=== PATIENT | male | born 1940 | race Caucasian/White ===

== ENCOUNTER 2018-08-31 12:09 | Outpatient (REF) | payer MEDICARE, BC, SELFPAY ==
[2018-08-31 22:45] LABS: ALT 35 U/L (12-78); AST 24 U/L (15-37); Albumin 3.5 g/dL (3.4-5.0); Alkaline Phosphatase 106 U/L (46-116); Anion Gap 9.4 mmol/L (3-11); BUN 19 mg/dL (7-18); Bilirubin, Total 0.3 mg/dL (0.2-1.0); CO2 25.6 mmol/L (21.0-32.0); CREATININE 0.97 mg/dL (0.70-1.30); Calcium 9.3 mg/dL (8.5-10.1); Chloride 103 mmol/L (98-107); Glucose 103 mg/dL (70-100); Potassium 4.5 mmol/L (3.5-5.1); Sodium 138 mmol/L (136-145); Total Protein 7.6 g/dL (6.4-8.2)
[2018-08-31 22:52] LABS: Abs Immature Grans 0.02 k/cumm (0.0-0.09); Absolute Basophil Count 0.02 k/cumm (0.0-0.2); Absolute Eosinophil Count 0.12 k/cumm (0.0-0.7); Absolute Lymphocyte Count 1.64 k/cumm (1.2-3.4); Absolute Monocyte Count 0.59 k/cumm (0.11-0.7); Basophils % 0.3; Eosinophils % 1.7; HCT 41.7 % (40.0-50.0); HGB 13.3 g/dL (13.5-17.5); Immature Grans % 0.3; Lymphocytes % 23.5; Mean Corp. HGB Concentration 31.9 g/dL (32.0-36.0); Mean Corpuscular Hemoglobin 32.3 pg (27.0-33.0); Mean Corpuscular Volume 101.2 fL (80-95); Mean Platelet Volume 9.5 fL (8.0-11.0); Monocytes % 8.4; Neutrophils % 65.8; Platelet Count 298 x1000/uL (130-400); RBC 4.12 m/cumm (4.50-6.00); RBC Distribution Width 16.7 % (11.8-14.1); White Blood Cell Count 6.99 k/cumm (4.4-10.8)
== END 2018-08-31 12:29 ==
LOC: NCHCN 12:09
PROVIDERS: PCP Family Medicine; Visit Provider Family Medicine
DX: R31.0 Gross hematuria (principal)
CPT/HCPCS: 80053; 85025; 87086

== ENCOUNTER 2018-10-25 10:38 | Outpatient (REF) | payer MEDICARE, BC, SELFPAY ==
[2018-10-25 22:18] LABS: Vitamin B12 256 pg/mL (193-986)
== END 2018-10-25 10:58 ==
LOC: NCHCN 10:38
PROVIDERS: PCP Family Medicine; Visit Provider Family Medicine
DX: D53.9 Nutritional anemia, unspecified (principal)
CPT/HCPCS: 82607

== ENCOUNTER 2019-06-01 15:08 | Outpatient (REF) | payer MEDICARE, BC, SELFPAY ==
[2019-06-01 20:15] LABS: Abs Immature Grans 0.02 k/cumm (0.0-0.09); Absolute Basophil Count 0.01 k/cumm (0.0-0.2); Absolute Lymphocyte Count 1.23 k/cumm (1.2-3.4); Absolute Monocyte Count 1.47 k/cumm (0.11-0.7); Basophils % 0.1; Eosinophils % 0.9; HCT 40.8 % (40.0-50.0); HGB 13.9 g/dL (13.5-17.5); Immature Grans % 0.2 %; Lymphocytes % 11.2; Mean Corp. HGB Concentration 34.1 g/dL (32.0-36.0); Mean Corpuscular Hemoglobin 34.4 pg (27.0-33.0); Mean Platelet Volume 9.4 fL (8.0-11.0); Monocytes % 13.4; Neutrophils % 74.2; Platelet Count 277 x1000/uL (130-400); RBC 4.04 m/cumm (4.50-6.00); RBC Distribution Width 15.6 % (11.8-14.1)
[2019-06-01 20:18] LABS: Absolute Neutrophil Count 8.16 k/cumm (1.2-6.7)
[2019-06-01 20:55] LABS: Hemoglobin A1C 5.8 % (3.8-5.6); Vitamin B12 839 pg/mL (193-986)
[2019-06-01 22:28] LABS: Folate > 20.0 ng/mL (8.6-20.0)
== END 2019-06-01 15:28 ==
LOC: NCHCN 15:08
PROVIDERS: PCP Family Medicine; Visit Provider Internal Medicine
DX: D53.9 Nutritional anemia, unspecified (principal); R42 Dizziness and giddiness; R73.09 Other abnormal glucose; C44.91 Basal cell carcinoma of skin, unspecified
CPT/HCPCS: 82607; 82746; 83036; 85025

== ENCOUNTER 2019-06-09 21:58 | Outpatient (REF) | payer MEDICARE, BC, SELFPAY ==
[2019-06-09 21:23] LABS: Abs Immature Grans 0.07 k/cumm (0.0-0.09); Absolute Basophil Count 0.02 k/cumm (0.0-0.2); Absolute Eosinophil Count 0.31 k/cumm (0.0-0.7); Absolute Lymphocyte Count 1.27 k/cumm (1.2-3.4); Absolute Monocyte Count 1.79 k/cumm (0.11-0.7); Absolute Neutrophil Count 6.51 k/cumm (1.2-6.7); Basophils % 0.2; Eosinophils % 3.1; HCT 42.4 % (40.0-50.0); HGB 13.8 g/dL (13.5-17.5); Immature Grans % 0.7 %; Lymphocytes % 12.7; Mean Corp. HGB Concentration 32.5 g/dL (32.0-36.0); Mean Corpuscular Hemoglobin 33.2 pg (27.0-33.0); Mean Corpuscular Volume 101.9 fL (80-95); Mean Platelet Volume 9.2 fL (8.0-11.0); Neutrophils % 65.3; Platelet Count 331 x1000/uL (130-400); RBC 4.16 m/cumm (4.50-6.00); RBC Distribution Width 15.3 % (11.8-14.1); White Blood Cell Count 9.97 k/cumm (4.4-10.8)
[2019-06-09 21:44] LABS: Diff Comment Agrees w/ Instrument; Macrocytosis 1+
[2019-06-09 21:54] LABS: COMMENT (LAB VIEW ONLY) 97.13 mg/dL; Microalb ug/mg Crea 16.1 ug/mg Cr
[2019-06-10 17:26] LABS: Bilirubin Negative (Negative); Blood Negative (Negative); Clarity Clear (Clear); Glucose Negative (Negative); Ketones Negative (Negative); Leukocyte Esterase Negative (Negative); Nitrite Negative (Negative); pH 5.5 (5-8)
== END 2019-06-09 22:18 ==
LOC: NCHCN 21:58
PROVIDERS: PCP Family Medicine; Visit Provider Nurse Practitioner Family
DX: R50.9 Fever, unspecified (principal); I10 Essential (primary) hypertension; J44.1 Chronic obstructive pulmonary disease with (acute) exacerbation
CPT/HCPCS: 81003; 82043; 82570; 85025

== ENCOUNTER 2020-04-15 16:15 | Outpatient (REF) | payer MEDICARE, BC, SELFPAY ==
[2020-04-15 13:23] LABS: BUN 15 mg/dL (7-18); CREATININE 1.1 mg/dL (0.70-1.30); Calcium 8.8 mg/dL (8.5-10.1); Chloride 103 mmol/L (98-107); Glucose 92 mg/dL (74-106); Potassium 4.8 mmol/L (3.5-5.1); Sodium 140 mmol/L (136-145)
== END 2020-04-15 16:16 | disposition home or self-care (01) ==
LOC: NCHCN 16:15
PROVIDERS: PCP Family Medicine; Visit Provider Nurse Practitioner Family
DX: R03.0 Elevated blood-pressure reading, without diagnosis of hypertension (principal)
CPT/HCPCS: 80048

== ENCOUNTER 2020-09-04 18:35 | Outpatient (REF) | payer MEDICARE, BC, SELFPAY ==
[2020-09-04 21:47] LABS: Abs Immature Grans 0.02 10^3/uL (0.0-0.06); Absolute Basophil Count 0.03 10^3/uL (0.0-0.2); Absolute Eosinophil Count 0.11 10^3/uL (0.0-0.7); Absolute Lymphocyte Count 1.62 10^3/uL (1.2-3.4); Absolute Monocyte Count 0.81 10^3/uL (0.1-0.8); Absolute Neutrophil Count 4.36 10^3/uL (1.2-6.7); Basophils % 0.4; Eosinophils % 1.6; HCT 39.9 % (40.0-50.0); HGB 13.1 g/dL (13.5-17.5); Immature Grans % 0.3; Lymphocytes % 23.3; MCHC 32.8 % (32.0-36.0); MCV 106.7 fL (80-95); MPV 9.6 fL (8.0-11.0); Monocytes % 11.7; Neutrophils % 62.7; Nucleated RBC 0 %; Platelet Count 228 10^3/uL (130-400); RBC 3.74 10^6/uL (4.36-5.78); RDW 15.3 % (11.8-14.1); RDW-SD 60.5 fL; WBC 6.95 10^3/uL (4.4-10.8)
[2020-09-04 21:55] LABS: Anion Gap 8.9 mmol/L (3-11); BUN 20 mg/dL (7-18); CO2 26.1 mmol/L (21.0-32.0); Calcium 8.9 mg/dL (8.5-10.1); Chloride 105 mmol/L (98-107); Glucose 121 mg/dL (74-106); Potassium 4.1 mmol/L (3.5-5.1); Sodium 140 mmol/L (136-145)
[2020-09-04 22:16] LABS: Diff Comment RBC Morph Reviewed; Macrocytosis 3+
== END 2020-09-04 18:36 | disposition home or self-care (01) ==
LOC: NCHCN 18:35
PROVIDERS: PCP Family Medicine; Visit Provider Nurse Practitioner Family
DX: R94.4 Abnormal results of kidney function studies (principal); R79.89 Other specified abnormal findings of blood chemistry; D53.9 Nutritional anemia, unspecified
CPT/HCPCS: 80048; 85025

== ENCOUNTER 2020-09-11 21:10 | Outpatient (REF) | payer MEDICARE, BC, SELFPAY ==
[2020-09-13 12:30] LABS: HSV 1 DNA Result Negative (Negative); HSV 2 DNA Result Negative (Negative); Varicella Zoster DNA Result Negative (Negative)
== END 2020-09-11 21:11 | disposition home or self-care (01) ==
LOC: NCHCN 21:10
PROVIDERS: PCP Family Medicine; Visit Provider Internal Medicine
DX: B02.9 Zoster without complications (principal)
CPT/HCPCS: 87529; 87798

== ENCOUNTER 2021-03-26 02:15 | Outpatient (CLI) | payer MEDICARE, BC, SELFPAY ==
[2021-03-26 13:27] VITALS: BP 143/77; PULSE 62; RESP 20; TEMP 36.2; O2SAT 97
[2021-03-26 14:45] VITALS: BP 135/79; PULSE 54; RESP 20; TEMP 36.9; O2SAT 96
== END 2021-03-26 02:16 | disposition home or self-care (01) ==
LOC: INF 02:15
PROVIDERS: PCP Family Medicine; Visit Provider Family Medicine
DX: U07.1 COVID-19 (principal)
CPT/HCPCS: 96365; Q0047

== ENCOUNTER 2021-10-22 22:15 | Outpatient (REF) | payer MEDICARE, BC, SELFPAY ==
[2021-10-22 21:10] LABS: HCT 41.3 % (40.0-50.0); HGB 13.9 g/dL (13.5-17.5); MCH 35.6 pg (27.0-33.0); MCHC 33.7 % (32.0-36.0); MCV 106 fL (80-95); MPV 9.5 fL (8.0-11.0); Platelet Count 284 10^3/uL (130-400); RDW 13.8 % (11.8-14.1); RDW-SD 53.9 fL; WBC 6.98 10^3/uL (4.4-10.8)
[2021-10-22 21:18] LABS: ALT 31 U/L (16-63); AST 28 U/L (15-37); Albumin 3.4 g/dL (3.4-5.0); Alkaline Phosphatase 100 U/L (46-116); Anion Gap 6.4 mmol/L (3-11); BUN 25 mg/dL (7-18); Bilirubin, Total 0.4 mg/dL (0.2-1.0); CO2 28.6 mmol/L (21.0-32.0); CREATININE 1.3 mg/dL (0.70-1.30); Chloride 100 mmol/L (98-107); Estimated GFR 55.19 (mL/min/1.73m2); Glucose 109 mg/dL (74-106); Potassium 4.4 mmol/L (3.5-5.1); Sodium 135 mmol/L (136-145); Total Protein 7.8 g/dL (6.4-8.2)
== END 2021-10-22 22:16 | disposition home or self-care (01) ==
LOC: NCHCN 22:15
PROVIDERS: PCP Family Medicine; Visit Provider Internal Medicine
DX: I10 Essential (primary) hypertension (principal); N18.9 Chronic kidney disease, unspecified; Z51.81 Encounter for therapeutic drug level monitoring
CPT/HCPCS: 80053; 85027; 85007

== ENCOUNTER 2022-02-27 16:22 | Outpatient (REF) | payer MEDICARE, BC, SELFPAY ==
[2022-02-27 21:14] LABS: Abs Immature Grans 0.06 10^3/uL (0.0-0.06); Absolute Basophil Count 0.03 10^3/uL (0.0-0.2); Absolute Eosinophil Count 0.07 10^3/uL (0.0-0.7); Absolute Lymphocyte Count 1.15 10^3/uL (1.2-3.4); Absolute Monocyte Count 1.47 10^3/uL (0.1-0.8); Basophils % 0.2; Eosinophils % 0.5; HCT 37.6 % (40.0-50.0); HGB 12.4 g/dL (13.5-17.5); Immature Grans % 0.4; Lymphocytes % 8.5; MCH 35.6 pg (27.0-33.0); MPV 9.8 fL (8.0-11.0); Monocytes % 10.9; Neutrophils % 79.5; Platelet Count 250 10^3/uL (130-400); RBC 3.48 10^6/uL (4.36-5.78); RDW 13.6 % (11.8-14.1); RDW-SD 54.3 fL; WBC 13.53 10^3/uL (4.4-10.8)
[2022-02-27 21:15] LABS: Absolute Neutrophil Count 10.76 10^3/uL (1.2-6.7)
[2022-02-27 21:16] LABS: MCV 108 fL (80-95)
[2022-02-27 22:24] LABS: ALT 22 U/L (16-63); AST 19 U/L (15-37); Albumin 3.3 g/dL (3.4-5.0); Alkaline Phosphatase 88 U/L (46-116); Anion Gap 7.7 mmol/L (3-11); BUN 23 mg/dL (7-18); Bilirubin, Total 0.6 mg/dL (0.2-1.0); CO2 26.3 mmol/L (21.0-32.0); CREATININE 1.3 mg/dL (0.70-1.30); Calcium 8.9 mg/dL (8.5-10.1); Chloride 100 mmol/L (98-107); Estimated GFR 55.19 (mL/min/1.73m2); Glucose 99 mg/dL (74-106); Potassium 4.6 mmol/L (3.5-5.1); Sodium 134 mmol/L (136-145); TSH 1.85 uIU/mL (0.36-3.74); Total Protein 7.6 g/dL (6.4-8.2)
== END 2022-02-27 16:23 | disposition home or self-care (01) ==
LOC: NCHCN 16:22
PROVIDERS: PCP Family Medicine; Visit Provider Internal Medicine
DX: R53.83 Other fatigue (principal)
CPT/HCPCS: 80053; 84443; 85025

== ENCOUNTER 2022-06-17 18:01 | Outpatient (REF) | payer MEDICARE, BC, SELFPAY ==
[2022-06-17 21:50] LABS: Anion Gap 10.4 mmol/L (3-11); BUN 17 mg/dL (7-18); CO2 26.6 mmol/L (21.0-32.0); CREATININE 1.1 mg/dL (0.70-1.30); Calcium 9.1 mg/dL (8.5-10.1); Chloride 102 mmol/L (98-107); Estimated GFR 67.44 (mL/min/1.73m2); Glucose 113 mg/dL (74-106); Potassium 4.2 mmol/L (3.5-5.1); Sodium 139 mmol/L (136-145)
== END 2022-06-17 18:02 | disposition home or self-care (01) ==
LOC: NCHCN 18:01
PROVIDERS: PCP Family Medicine; Visit Provider Nurse Practitioner Family
DX: R53.83 Other fatigue (principal); R19.7 Diarrhea, unspecified; G47.19 Other hypersomnia
CPT/HCPCS: 80048

== ENCOUNTER 2022-09-17 18:24 | Outpatient (REF) | payer MEDICARE, BC, SELFPAY ==
[2022-09-17 21:15] LABS: Anion Gap 6.8 mmol/L (3-11); BUN 15 mg/dL (7-18); CO2 29.2 mmol/L (21.0-32.0); CREATININE 1.2 mg/dL (0.70-1.30); Calcium 9.2 mg/dL (8.5-10.1); Chloride 100 mmol/L (98-107); Estimated GFR 60.38 (mL/min/1.73m2); Glucose 99 mg/dL (74-106); Potassium 3.9 mmol/L (3.5-5.1); Sodium 136 mmol/L (136-145)
== END 2022-09-17 18:25 | disposition home or self-care (01) ==
LOC: NCHCN 18:24
PROVIDERS: PCP Family Medicine; Visit Provider Registered Nurse
DX: I10 Essential (primary) hypertension (principal); N18.9 Chronic kidney disease, unspecified; R31.0 Gross hematuria
CPT/HCPCS: 80048

== ENCOUNTER 2023-03-11 14:01 | Outpatient (REF) | payer MEDICARE, BC, SELFPAY ==
[2023-03-11 21:30] LABS: Abs Immature Grans 0.02 10^3/uL (0.0-0.06); Absolute Basophil Count 0.01 10^3/uL (0.0-0.2); Absolute Eosinophil Count 0.05 10^3/uL (0.0-0.7); Absolute Monocyte Count 0.71 10^3/uL (0.1-0.8); Absolute Neutrophil Count 3.15 10^3/uL (1.2-6.7); Basophils % 0.2; HCT 42.6 % (40.0-50.0); HGB 13.9 g/dL (13.5-17.5); Immature Grans % 0.4; Lymphocytes % 21.8; MCH 34.4 pg (27.0-33.0); MCHC 32.6 % (32.0-36.0); MPV 10.8 fL (8.0-11.0); Monocytes % 14.1; Neutrophils % 62.5; Platelet Count 193 10^3/uL (130-400); RBC 4.04 10^6/uL (4.36-5.78); RDW 14.6 % (11.8-14.1); WBC 5.04 10^3/uL (4.4-10.8)
[2023-03-11 21:46] LABS: Macrocytosis 3+
[2023-03-11 21:47] LABS: MCV 105 fL (80-95)
[2023-03-11 21:48] LABS: ALT 35 U/L (16-63); AST 31 U/L (15-37); Albumin 3.5 g/dL (3.4-5.0); Alkaline Phosphatase 117 U/L (46-116); Anion Gap 2.9 mmol/L (3-11); BUN 19 mg/dL (7-18); Bilirubin, Total 0.5 mg/dL (0.2-1.0); CO2 32.1 mmol/L (21.0-32.0); Calcium 8.9 mg/dL (8.5-10.1); Chloride 104 mmol/L (98-107); Estimated GFR 75.14 (mL/min/1.73m2); Glucose 94 mg/dL (74-106); Potassium 4.3 mmol/L (3.5-5.1); Sodium 139 mmol/L (136-145); TSH 2.31 uIU/mL (0.36-3.74); Total Protein 7.8 g/dL (6.4-8.2)
== END 2023-03-11 14:02 | disposition home or self-care (01) ==
LOC: NCHCN 14:01
PROVIDERS: PCP Family Medicine; Visit Provider Family Medicine
DX: R42 Dizziness and giddiness (principal); R53.83 Other fatigue
CPT/HCPCS: 80053; 84443; 85025